=== PATIENT | female | born 1985 | race Two or more races ===

== ENCOUNTER 2025-01-26 10:18 | Emergency (ER) | payer OTHER ==
[~2025-01-26] VITALS: Ht 165.1 cm; Wt 85.7 kg
[2025-01-26] MEDS ORDERED: IBUPROFEN800 MG PO (13:26)
[2025-01-26] MEDS ORDERED: KETOROLAC TROMETHAMINE 30 MG VIAL IM ONE (13:30)
[2025-01-26] MEDS ORDERED: DEXAMETHASONE SODIUM PHOSPHATE 4 MG/ML VIAL IM ONE (13:30)
[2025-01-26] MEDS ORDERED: SALINE NOSE SPR45 ML (16:09)
== END 2025-01-26 13:43 | disposition home or self-care (01) ==
LOC: ER 10:18
DX: R10.2 Pelvic and perineal pain (principal)